=== PATIENT | female | born 1950 | race Caucasian/White ===

== ENCOUNTER → 2017-11-16 | Outpatient (CLI) | payer MEDICARE ==
--- NOTE | 2017-11-16 12:29 | Diagnostic Imaging Report ---
EXAMINATION: MRI of the lumbar spine without contrast HISTORY: Low back pain radiating into the right lower extremity with numbness COMPARISON: None. TECHNIQUE: Sagittal T1, T2, STIR; axial T2 and proton density. FINDINGS: It is assumed that there are 5 lumbar vertebrae. Curvature/Alignment: Normal lordosis. Vertebrae: No evidence of recent fracture, infection, or neoplasm. Chronic endplate degenerative changes at L5-S1. Conus: Normal, terminating at L1 Cauda equina: Unremarkable. Lower thoracic: Unremarkable. Paraspinal soft tissues: Partially visualized T2 hyperintense possible cyst or hemangioma in the right lobe of the liver, a right upper by ultrasound is recommended. Degenerative changes: L1-L2: Unremarkable. L2-L3: Unremarkable. L3-L4: Minimal asymmetric to the right disc bulge and facet arthrosis. No canal or foraminal stenoses L4-L5: Decreased disc height and T2 signal intensity, symmetric disc osteophyte and facet arthrosis, ligamenta flava thickening. Mild spinal canal and [id number] bilateral foraminal stenosis. L5-S1: Decreased disc height and T2 signal intensity, marginal asymmetric to the right disc osteophyte and facet arthrosis. [id number]-sk-[id number] bilateral foraminal stenoses. Sacroiliac joints: Mild degenerative changes bilaterally IMPRESSION: 1. Mild degenerative spinal canal and [id number] foraminal stenosis at L4-L5. 2. Mild to moderate degenerative foraminal stenosis at L5-S1. 3. Disproportionate degenerative changes at L4-L5 and L5-S1 compared to the remaining levels, this may represent sequela from remote trauma, infection and/or degenerative in nature. 4. Partially visualized nonspecific T2 hyperintense focus in the liver, a right upper quadrant ultrasound is recommended if not previously evaluated. Signed by: Dr. Edilia Camarillo M.D. on 11/16/2017 12:25 PM
== END ==
LOC: MRI 07:10
PROVIDERS: ATTEND Family Medicine
DX: M54.16 Radiculopathy, lumbar region (principal)
CPT/HCPCS: 72148

== ENCOUNTER → 2017-11-25 | Outpatient (CLI) | payer MEDICARE ==
--- NOTE | 2017-11-25 14:51 | Diagnostic Imaging Report ---
PROCEDURE:LIVER ULTRASOUND COMPARISON:MRI of the lumbar spine from 11/16/2017 INDICATIONS:ABNORMAL MRI OF THE LIVER FINDINGS: Liver: 12.4 cm in length Normal hepatic parenchymal echogenicity. There is a mildly hyperechoic lesion in the posterior right hepatic lobe which measures 2.8 x 2.0 x 3.2 cm. Main portal vein: 1.1 cm in caliber. Hepatopedal flow. Gallbladder: Absent Common Bile Duct: 0.4 cm in caliber. No echogenic filling defect. Sonographic Velez's sign: Negative Right kidney: 11.6 cm in length. No No solid or cystic mass, echogenic calculi, or hydronephrosis. Normal parenchymal echogenicity. Pancreas: The visualized portions of the pancreatic neck and proximal body are normal. Inferior vena cava: Normal. Aorta: Normal. Ascites: None. CONCLUSION: Faintly visualized 2.8 x 2.0 x 3.2 cm lesion in the posterior right hepatic lobe. Taking into account this lesion's appearance on recent MRI, this most likely represents a benign cavernous hemangioma. Consider followup ultrasound to 6-12 months to ensure stability. Dictated by: Ramon Clinton M.D. on 11/25/2017 at 14:55 Electronically approved by: Ramon Clinton M.D. on 11/25/2017 at 14:55
== END ==
LOC: US 13:31
PROVIDERS: ATTEND Family Medicine
DX: R93.2 Abnormal findings on diagnostic imaging of liver and biliary tract (principal)
CPT/HCPCS: 76705